=== PATIENT | male | born 1980 | race Caucasian/White ===

== ENCOUNTER 2018-02-13 10:15 | Emergency (ER) | payer SELFPAY | END 2018-02-13 11:00 | disposition left against medical advice (07) | LOC: D.ER 10:15 | DX: S69.91XA Unspecified injury of right wrist, hand and finger(s), initial encounter (principal); W22.8XXA Striking against or struck by other objects, initial encounter; Y93.89 Activity, other specified; Y92.019 Unspecified place in single-family (private) house as the place of occurrence of the external cause ==

== ENCOUNTER 2018-04-02 07:10 | Emergency (ER) | payer SELFPAY ==
[~2018-04-02] VITALS: Ht 170.2 cm; Wt 70.5 kg
[2018-04-02 07:13] VITALS: Ht 170.2 cm; Wt 70.5 kg
[2018-04-02] MEDS ORDERED: SUBOXONE 2 MG-01 TAB PO (07:19)
[2018-04-02] MEDS ORDERED: HYDROCODON-ACE1 EAC7 PO (07:38)
[2018-04-02 08:30] VITALS: BP 127/71
== END 2018-04-02 08:31 | disposition home or self-care (01) ==
LOC: D.ER 07:10
DX: S60.031A Contusion of right middle finger without damage to nail, initial encounter (principal); W22.8XXA Striking against or struck by other objects, initial encounter; Y93.H2 Activity, gardening and landscaping; Y92.017 Garden or yard in single-family (private) house as the place of occurrence of the external cause; F17.200 Nicotine dependence, unspecified, uncomplicated

== ENCOUNTER 2019-09-25 08:44 | Emergency (ER) | payer MEDICAID ==
[~2019-09-25] VITALS: Ht 170.2 cm; Wt 75.0 kg
[~2019-09-25 08:44] MED LIST: HYDROCODON-ACE1 EAC7 PO; SUBOXONE 2 MG-01 TAB PO
[2019-09-25 08:52] VITALS: Ht 170.2 cm; Wt 75.0 kg
[2019-09-25 09:51] VITALS: BP 132/85
== END 2019-09-25 09:52 | disposition home or self-care (01) ==
LOC: D.ER 08:44
DX: B34.9 Viral infection, unspecified (principal); I25.2 Old myocardial infarction